=== PATIENT | female | born 1980 | race Caucasian/White ===

== ENCOUNTER 2024-03-24 09:48 | Outpatient (AMB) | payer BC, SELFPAY ==
--- NOTE | 2024-03-24 09:54 | MHC.OFFVIS ---
Vital Signs 03/24/24 09:56 Height 5 ft 4 in Weight 127 lb BMI 21.8 BP 124/68 Blood Pressure Location Lt brachial Position Sitting Respiration 14 Pulse 87 Pulse Source Pulse Oximeter Pulse Oximetry (%) 100 Oxygen Delivery Method Room Air Intake Visit Reasons: low back pain Allergies amoxicillin Adverse Reaction (Severe, Verified 03/24/24 09:57) rash scallops Adverse Reaction (Severe, Uncoded 03/24/24 09:57) N/V Headache Medication List - Last Reconciled 03/24/24 by Adrienne Mc LPN acetaminophen 650 mg PO Q6H PRN ibuprofen (Advil) 200 mg PO Q6H PRN magnesium glycinate 200 mg PO DAILY HPI Comments Details: Margi is a very pleasant 43-year-old female who presents to the office today for evaluation management of her chronic lower back pain. Pain started approximately 10 years ago after having children. Initially she was treated with muscle relaxers which would give her short-term relief. In 2013 pain became worse, she underwent an MRI, results as per below. In 2021 pain worsened and she noticed that when she would bend over it would feel like her back would lock up making it difficult to stand up again. Approximately 9 months ago she went to [facility] it was diagnosed with facet joint syndrome, they referred her to physical therapy. She completed a couple sessions but it was making her pain worse. Endorses midline lower back pain that does not radiate down either lower extremity. She denies shooting, zinging or electrical pains down her legs. Patient does have a history of peripheral neuropathy, she was evaluated by Neurology and told that she has some nerve damage to both feet from sports and competitive running. She denies red flag symptoms including new loss of bowel, bladder or saddle anesthesia. Patient has tried chiropractor, PT, home exercise program, nonsteroidal anti-inflammatory medication, prescription medications all without resolution of her pain. She is currently taking ibuprofen as needed with moderate effect. In terms of muscle damage condition is described as aching, stabbing, dull, sore, hurting, heavy. Pain today is rated as a 6/10, worse with moving, standing, activity. 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 Patient denies use of tobacco, alcohol or illicit substances. Denies implantable devices. Patient is not currently taking anticoagulants. Denies chance of , LMP 03/08/2024. [facility] Medical History (Updated 03/24/24 @ 12:09 by Cierra You, MICA LAYER, INVESTIGATIVE WRITER) TMJ (temporomandibular joint syndrome) Dysthymia Lumbar back pain Cervical disc disorder Depression screen Annual physical exam Review of Systems Const All systems reviewed & are unremarkable except as noted in HPI and below Physical Exam Vital Signs: Last Vital Signs Pulse 87 03/24/24 09:56 Resp 14 03/24/24 09:56 BP 124/68 03/24/24 09:56 Pulse Ox 100 03/24/24 09:56 Oxygen Delivery Method Room Air 03/24/24 09:56 BMI result Body Mass Index 21.8 General: awake, alert, oriented. Answers questions appropriately. Fully engaged in examination. Skin: warm, dry, intact HEENT: Normocephalic. Hearing intact. Cardiac: External chest normal in appearance. Respiratory: No cough, audible wheezing or stridor. Abdomen: without gross distension. MS: No obvious swelling or deformities. Able to stand on bilateral tiptoes and bilateral heels.? Able to transition from sit to stand unassisted. Ambulates with bilaterally normal heel strike and toe off Lumbar range of motion intact SLR with dorsiflexion negative bilaterally CLAUDE negative bilaterally Thigh thrust negative bilaterally SI compression negative bilaterally Gaenslen negative bilaterally Spurling positive bilaterally Tenderness to palpation lumbar vertebrae and paraspinal muscles Nontender over PSIS Neurological: Oriented to person, place, time and situation. Thought process intact. No gait abnormalities appreciated. Psychiatric: Appropriate mood and affect. Good judgment and insight. Results Reviewed Results Reviewed: Assessment & Plan Assessment & Plan (1) Lumbar spondylosis: Code(s): M47.816 - Spondylosis without myelopathy or radiculopathy, lumbar region Category: Medical (2) Cervical post-laminectomy syndrome: Comment: 11/14/2023 C4-C6 ACDF Code(s): M96.1 - Postlaminectomy syndrome, not elsewhere classified Category: Medical Plan Margi is a very pleasant 43-year-old female who presents the office today for evaluation and management of her chronic lower back pain History, physical exam and provocative testing consistent with lumbar spondylosis. She is suffering from axial back pain. Order placed for PT eval and treat. Hard copy given to patient so she can take to a location of her choice. She was advised to contact the office if there is anything we need to do to facilitate her getting PT appointment. Discussed at length the patient's diagnosis and options for treatment including diagnostic interventional testing, therapeutic steroid injections, peripheral nerve stimulation with Sprint, RFA. Informational pamphlets provided. Patient would like to try physical therapy first, if no improvement will plan for fluoroscopy guided diagnostic bilateral L3-L4 DR L5 medial branch blocks with local anesthetic. She will follow up in the office after 3-4 weeks of physical therapy to discuss results. Patient was advised to call the office if pain persists with physical therapy or worsens, we can proceed with injections.. All questions and concerns have been answered and patient agrees with the plan. Follow up after PT, sooner if needed. Orders: Orders PT Evaluation and Treatment Today M47.816 - Spondylosis without myelopathy or radiculopathy, lumbar region Coding Level of Care Code New Pt Level 4 (18831) Diagnoses Lumbar spondylosis M47.816 Cervical post-laminectomy syndrome M96.1
[2024-03-24 09:56] VITALS: BP 124/68; PULSE 87; RESP 14; O2SAT 100; BMI 21.8
== END 2024-03-24 11:00 | disposition home or self-care (01) ==
PROVIDERS: PCP Physician Assistant Medical; Visit Provider Registered Nurse Emergency
DX: M47.816 Spondylosis without myelopathy or radiculopathy, lumbar region (principal); M96.1 Postlaminectomy syndrome, not elsewhere classified
CPT/HCPCS: 99204

== ENCOUNTER → 2024-03-24 09:48 | Outpatient (BNVA) | payer BC, SELFPAY | PROVIDERS: PCP Physician Assistant Medical; Visit Provider Registered Nurse Emergency ==